=== PATIENT | female | born 1940 | race Caucasian/White ===

== ENCOUNTER 2018-06-19 16:11 | Inpatient (IN) ==
--- NOTE | 2018-06-19 16:53 | Diag Imaging Result Doc PS360 ---
EXAM: CT HEAD W/O CONTRAST INDICATION: STROKE LIKE SYMPTOMS TECHNIQUE: This exam was performed using automated exposure control, adjustment of mA or kV according to patient size, and/or use of iterative reconstruction technique. COMPARISON: None. FINDINGS: There is focal low attenuation involving the left temporoparietal region with loss of the slater-white interface indicating an acute infarct. It is in the left MCA distribution. There is mild sulcal effacement related to the associated edema. Otherwise, there is no discrete intracranial mass, mass effect, or intracranial hemorrhage. The surrounding soft tissues and bony structures are essentially unremarkable. IMPRESSION: Acute infarct involving the left temporoparietal region as described. The findings were discussed with Billy Leon MD at 06/19/2018 4:51 PM and was acknowledged. Electronically signed by Chauncey Boyer 06/19/2018 4:51 PM
--- NOTE | 2018-06-19 17:31 | PROVIDER DOCUMENTATION ---
HPI-General Adult - General Chief Complaint: Stroke-Like Symptoms Stated Complaint: STROKE LIKE SYMPTOMS Time Seen by Provider: 06/19/18 17:35 Source: patient - History of Present Illness -Gen Adult Nature of Presenting Problems: THIS IS A 78 YEAR OLD FEMALE WITH ONLY MEDICAL HISTORY OF GERD PER PATIENT AND WAS INSTRUCTED BY THEIR PRIMARY CARE PROVIDER TO COME IN TODAY WITH CONCERN OF EXPRESSIVE APHAGIA. PER , HE NOTICED WAS NOT MAKING ANY SENSE WHEN SHE TALKS AROUND 0700 THIS MORNING WHEN SHE WORK UP. DENIES ANY OTHER NEUROLOGICAL DEFICIT. CURRENTLY, PATIENT DENIES ANY FEVER, CHILL, NIGHT SWEATS, DIZZINESS, LIGHTHEADEDNESS, BLURRY VISION, SORE THROAT, CHEST PAIN, PALPITATION, DYSPNEA, ABDOMINAL DISCOMFORT, NAUSEA, VOMITING, DIARRHEA, CONSTIPATION, MYALGIA, ARTHRALGIA, NEW RASH/LESION, AND HEAT OR COLD INTOLERANCE. Review of Systems - Adult - REVIEW OF SYSTEMS - ADULT ROS:: unobtainable per condition Constitutional: reports: no symptoms reported Eyes: reports: no symptoms reported Ears, Nose, Mouth & Throat: reports: no symptoms reported Cardiovascular: reports: no symptoms reported Respiratory: reports: no symptoms reported Gastrointestinal: reports: no symptoms reported Genitourinary: reports: no symptoms reported Musculoskeletal: reports: no symptoms reported Integumentary: reports: no symptoms reported Neurological: reports: slurred speech Psychiatric: reports: no symptoms reported Endocrine: reports: no symptoms reported Hematologic/Lymphatic: reports: no symptoms reported Past History - Adult - PAST MEDICAL HISTORY-ADULT Review of Records: reports: Old Records Reviewed Physical Exam-General - PHYSICAL EXAM-ADULT Initial Vital Signs Reviewed: Yes - CONSTITUTIONAL General Appearance: appears well, alert, no apparent distress - EYES Eyes: PERRL/EOMI - HEAD, EARS, NOSE, MOUTH & THROAT HENMT: normocephalic/atraumatic, moist mucous membranes, normal ENT inspection - NECK Neck: non-tender, full range of motion, supple - RESPIRATORY Respiratory: chest non-tender, lungs clear, normal breath sounds, no pleuratic chest pain, no respiratory distress, no accessory muscle use - CARDIOVASCULAR Cardiovascular: normal peripheral pulses, regular rate, rhythm, no edema, no gallop, no JVD, no murmur - GASTROINTESTINAL (ABDOMEN) Abdominal Exam: normal bowel sounds, non tender, soft - MUSCULOSKELETAL Back Exam: normal inspection, no CVA tenderness, no vertebral tenderness Extremity: normal range of motion, non-tender, normal gait, normal inspection - SKIN Integumentary: normal color, normal turgor, warm/dry - NEUROLOGIC Neurologic: grossly normal, aphasia (EXPRESSIVE APHAGIA). negative: facial droop, focal weakness, motor weakness, sensory deficit - PSYCHIATRIC Psych/Mental Status: normal mood/affect, normal thought content. negative: normal thought process (THOUGHT PROCESS IS SLOW.) Progress - PLAN OF CARE/RESULTS Progress/Plan/Lab Results: Vital Signs - 8 hr 06/19/18 16:20 Temperature 98.3 F Pulse Rate 91 H Respiratory Rate 17 Blood Pressure 179/83 O2 Sat by Pulse Oximetry 100 Orders Category Date Time Status NPO Diet 06/19/18 17:[address] HEAD W/O CONTRAST [CT] Stat Exams 06/19/18 16:27 Completed cxr [CHEST-PORTABLE] [RAD] Stat Exams 06/19/18 17:28 Ordered CBC WITH ELECTRONIC DIFF [HEME] Stat Lab 06/19/18 17:27 Uncollected COMPREHENSIVE METABOLIC PANEL [CHEM] Stat Lab 06/19/18 17:27 Uncollected LIPID PROFILE W/DIR LDL [LIPIDS] Stat Lab 06/19/18 17:27 Ordered MAGNESIUM [CHEM] Stat Lab 06/19/18 17:27 Uncollected URINALYSIS W/POSS RFLX CULT [URINALYSIS] Stat Lab 06/19/18 17:28 Uncollected EKG [EKG] Stat Ther 06/19/18 17:28 Ordered - REASSESSMENT Reassessment #1 Time Reassessed: 17:31 Status: other (CT REPORT WAS GIVEN TO ME OVER THE PHONE WHICH I IMMEDIATELY WENT TO WAITING AREA TO TALK TO THE PATIENT. PER PATIENT AND FAMILY, HER SYMPTOMS OF EXPRESSIVE APHAGIA STARTED AROUND 7AM IN THE [facility] AND WENT TO HER PCP FIRST WHICH THEY INSTRUCTED HER TO COME HERE. GIVEN THAT HER SYMPTOMS STARTED 7AM, SHE IS NOT A CANDIDATE FOR TPA. 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, WE CURRENTLY DONT' HAVE ANY BED OR ADDITTIONAL NURSE STAFF BUT I HAVE INFORMED PATIENT AND SHE WILL BE BROUGHT IN RAY WHEN A BED OPENS UP.) Reassessment #2 Time Reassessed: 18:44 Status: other (SPOKE TO TRIAGE NURSE TO GIVE ASPIRIN 325MG.) Reassessment #3 Time Reassessed: 19:43 Status: other (PATIENT WILL BE ADMITTED; I AM JUST WAITING FOR LABS TO COME BACK TO CALL THE HOSPITALIST) Reassessment #4 Time Reassessed: 20:01 Status: other (SPOKE TO THE HOSPITALIST, APPRECIATE THEIR ASSISTANCE.) - XRAY 1 XRAY Study: Chest ([facility] [address] , [address], [place] [address] Department of Imaging Patient: HERMINIA GUEVARA FAYEADM Date: MR#: [id number] : 1940DM Status: REG ERAcct#: [id number] Age/ Sex: 78/FRoom/Bed: Loc: ED Ordering Physician: Billy Leon MD Family Physician: Garima Burleson MD Reason for Procedure: STROKE Signed * 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 There are several scattered calcified granulomata. The lungs appear grossly clear, otherwise. There is no discrete pleural fluid collection or pneumothorax. The cardiomediastinal silhouette and central vasculature are grossly unremarkable. IMPRESSION: No evidence of acute pathology by plain radiograph. Electronically signed by Chauncey Boyer 06/19/2018 7:32 PM 06/19/181931 Interpreting Physician: Chauncey Boyer MD Dictated Date/Time: 06/19/181929 cc: Billy Leon MD; Garima Burleson MD) - CT/MRI 1 CT Study: Head ([facility] [address] [facility], [address], [place] [address] Department of Imaging Patient: HERMINIA GUEVARA FAYEADM Date: 03/[birth year]MR#: [id number] : 1940DM Status: PRE ERAcct#: [id number] Age/ Sex: 78/FRoom/Bed: Loc: ED Ordering Physician: Billy Leon MD Family Physician: Garima Burleson MD Reason for Procedure: STROKE LIKE SYMPTOMS ___ _ Signed EXAM: CT HEAD W/O CONTRAST INDICATION: STROKE LIKE SYMPTOMS TECHNIQUE: This exam was performed using automated exposure control, adjustment of mA or kV according to patient size, and/or use of iterative reconstruction technique. COMPARISON: None. FINDINGS: There is focal low attenuation involving the left temporoparietal region with loss of the slater- white interface indicating an acute infarct. It is in the left MCA distribution. There is mild sulcal effacement related to the associated edema. Otherwise, there is no discrete intracranial mass, mass effect, or intracranial hemorrhage. The surrounding soft tissues and bony structures are essentially unremarkable. IMPRESSION: Acute infarct involving the left temporoparietal region as described. The findings were discussed with Billy Leon MD at 03/2019 4:51 PM and was acknowledged. Electronically signed by Chauncey Boyer 03/2019 4:51 PM 06/19/18 1651 Interpreting Physician: Chauncey Boyer MD Dictated Date/Time: 06/19/18 1645 cc: Billy Leon MD; Garima Burleson MD) Departure - Departure Date of Disposition Decision: 06/19/18 Time of Disposition Decision: 20:01 DIAGNOSIS: Stroke Disposition: ADMITTED INPATIENT 09 Certified Medical Emergency: Emergent Condition: Fair Referrals and Follow-Ups: Garima Burleson MD [Primary Care Provider] - - Critical Care Note This patient required my direct & personal management of CC.: No Attestation - Physician/ ALLISON Attestation Patient care was provided by Advanced Practice Provider:: No The physician spent face to face time with patient:: Yes Advanced Practice Provider documentation review:: Supervising physician onsite and consulted in the evaluation and care of this patient. The physician did have a face to face encounter with the patient.
[2018-06-19] MEDS ORDERED: ASPIRIN PO ONE (18:40)
--- NOTE | 2018-06-19 19:33 | Diag Imaging Result Doc PS360 ---
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 There are several scattered calcified granulomata. The lungs appear grossly clear, otherwise. There is no discrete pleural fluid collection or pneumothorax. The cardiomediastinal silhouette and central vasculature are grossly unremarkable. IMPRESSION: No evidence of acute pathology by plain radiograph. Electronically signed by Chauncey Boyer 06/19/2018 7:32 PM
[2018-06-19 20:34] LABS: URINE SOURCE CLEAN CATCH
[2018-06-19 20:36] LABS: BASO# 0.04 X1000 (0.0-0.2); BASO% 0.7 % (0.0-0.8); EOS# 0.15 X1000 (0.0-0.7); EOS% 2.5 % (0.0-10.0); HEMATOCRIT 37.9 % (37.0-47.0); HEMOGLOBIN 12.4 g/dL (12.0-16.0); LYMPH# 2.14 X1000 (1.2-3.4); LYMPH% 35.9 % (20.5-51.1); MCH 28.4 PG (27-31); MCHC 32.7 g/dL (33-37); MCV 86.7 FL (81-99); MONO# 0.52 X1000 (0.11-0.59); MONO% 8.7 % (1.7-9.3); MPV 10.6 FL (7.4-10.4); NEUT# 3.11 X1000 (1.4-6.5); NEUT% 52.2 % (42.2-75.2); PLT 270 X1000 (130-400); RBC 4.37 XMIL (4.2-5.4); RDW 13.4 % (11.5-14.5); WBC 5.96 X1000 (4.8-10.8)
[2018-06-19 20:38] LABS: BILIRUBIN URINE NEGATIVE (NEGATIVE); BLOOD URINE NEGATIVE (NEGATIVE); COLOR STRAW; GLUCOSE URINE NEGATIVE (NEGATIVE); KETONE URINE 10 mg/dL (NEGATIVE); LEUKOCYTES URINE NEGATIVE (NEGATIVE); NITRITE URINE NEGATIVE (NEGATIVE); PROTEIN URINE NEGATIVE (NEGATIVE); TURBIDITY URINE CLEAR (CLEAR); UROBILINOGEN URINE NORMAL (NORMAL)
[2018-06-19 20:40] LABS: UR EPITHELIAL CELLS <10 /HPF (<10); URINE BACTERIA NEGATIVE /HPF; URINE RBC <10 /HPF (<10); URINE WBC <10 /HPF (<10)
[2018-06-19 20:41] LABS: INR 0.86; PROTIME 12.4 Seconds (11.0-16.0)
[2018-06-19 20:42] LABS: PTT 28.9 Seconds (22.3-41.8)
[2018-06-19 21:01] LABS: AGAP 12; ALB/GLOB RATIO 1.7; ALBUMIN 4.6 g/dL (3.5-5.0); ALKALINE PHOSPHATASE 50 U/L (32-104); BUN 14 mg/dL (8-22); CALCIUM 9.6 mg/dL (8.8-10.2); CHLORIDE 99 mmol/L (98-107); COSMO 270; CREATININE 0.8 mg/dL (0.5-0.9); ESTIMATED GFR > 60; GLUCOSE 95 mg/dL (70-104); GOT 24 U/L (10-30); GPT 17 U/L (10-36); MAGNESIUM 2.2 mg/dL (1.5-2.7); SODIUM 135 mmol/L (136-145); TCO2 24 mmol/L (25-35); TOTAL BILIRUBIN 0.31 mg/dL (0.20-1.00); TOTAL PROTEIN 7.3 g/dL (6.3-8.3)
[2018-06-19] MEDS ORDERED: NS 1,000 ML IV SCH (22:16)
[2018-06-19] MEDS ORDERED: CATAPRES PO PRN (22:16)
[2018-06-19] MEDS: LIPITOR PO SCH (23:05)
[2018-06-19] MEDS: LOVENOX SUBQ SCH (23:05)
--- NOTE | 2018-06-20 05:49 | HISTORY AND PHYSICAL ---
PRIMARY CARE PHYSICIAN: Dr. Burleson. REASON FOR ADMISSION: One-day history of expressive aphasia. HISTORY OF PRESENT ILLNESS: Ms. Natividad Storey is a 78-year-old lady with no past medical history other than seasonal allergic rhinitis and reflux disease. She was brought in today eight hours after she awakened to have difficulty expressing herself and with slurred speech. The and patient concur with these events and they both report that her speech as of five hours later had significantly improved although she was still having difficulty, specifically expressing and enunciating some of her words. When this occurred, the spouse and nephew who came around later in the day, denied any facial drooping or extremity weakness. The patient denied any antecedent headache, visual problems, difficulty swallowing. She said she knew what she wanted to say but the words never quite came out the way she wanted. She then went to see her family physician eight hours later who referred her immediately to the ER. Since she has been in the ER over the last five hours her dysarthria and expressive aphasia has significantly improved. Every now and again she may trip up on an occasional word. Still she has not developed any other symptoms, i.e. weakness, numbness, tingling, neck stiffness. No antecedent history of palpitations or cardiorespiratory complaints. No GI or complaints other than heartburn which is chronic and very intermittent. REVIEW OF SYSTEMS: Twelve system review was done. Positive findings per HPI. No use of new over- the-counter medications, i.e. herbal remedies. ALLERGIES: Patient reports none. MEDICATIONS: None. SURGICAL HISTORY: Right shoulder and right heel surgery. SOCIAL HISTORY: She does not smoke, use illicit drugs. . Lives with her . FAMILY HISTORY: Notable for heart disease. No diabetes or cancer in first-degree relatives. LAB WORK: EKG was ordered but has not been done. Chest film was negative for any acute cardiorespiratory findings. CT of the head, however, did show an acute focal area of low attenuation in the left temporoparietal region suggestive of an acute stroke in the left MCA territory. The rest of her lab work is still pending but so far her PT [*]is normal. CBC: White count 6000. Hemoglobin and hematocrit 12 and 37. Platelets 270 with normal differential. Urinalysis is clean. Chemistry is still pending as is EKG. PHYSICAL EXAMINATION: VITAL SIGNS: Blood pressure 156/65, heart rate 65, respirations 18, temperature is 97.9, 100% on room air. GENERAL: She is a pleasant thin elderly woman who is not in acute distress. She is alert and oriented to person, place and time. Cranial nerves II-XII are grossly intact. The only thing of note is that very occasionally she might have a hard time enunciating certain words, exhibiting a mild Broca's type aphasia. Neurological exam, very mild left upper extremity weakness. Otherwise, no other sensory motor deficits noted. HEENT: Eyes: Anicteric. Not pale. ENT: Oropharynx exam is grossly normal. No sign of cyanosis. NECK: Supple. No JVD. No carotid bruit. No thyromegaly. CHEST: Clear when auscultated with good air entry in both lung robison. CARDIOVASCULAR: First and second heart sounds are heard. No gallops, murmurs or rubs. Rhythm is regular. ABDOMEN: Full. No tenderness or megaly. Bowel sounds are hypoactive. No bruit heard. RECTAL: Exam deferred at this time. EXTREMITIES: No edema, clubbing or peripheral cyanosis. The patient has good distal pulse extremity pulse volumes, regular, symmetrical. NEUROLOGICAL: See above. SKIN: Intact with no breakdown, lesion or erythema. MUSCULOSKELETAL: Exam is grossly normal. 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 PLAN: Patient will be started on aspirin fir secondary prophylaxis, statin for the same reason. Blood pressure medications will be withheld for now, systolic blood pressure greater than 180. This may eventually be started if systolic blood pressure remains greater than 140s, 150s after about two days. Stroke workup involving echocardiogram, carotid Doppler study and an intracranial MRI have been ordered. Neurology has been consulted. Other potential risk factors will be investigated. Will check an A1c. Continue telemetry to ensure patient does have not paroxysmal atrial fibrillation. Thrombophilia workup not cost effective in this patient with no family history or prior history of clotting disease, however, DVT prophylaxis will be instituted. cc: MD Garima Walker MD
[2018-06-20 07:35] LABS: BASO# 0.03 X1000 (0.0-0.2); BASO% 0.9 % (0.0-0.8); EOS# 0.09 X1000 (0.0-0.7); EOS% 2.8 % (0.0-10.0); HEMATOCRIT 33.7 % (37.0-47.0); HEMOGLOBIN 10.9 g/dL (12.0-16.0); LYMPH# 1.41 X1000 (1.2-3.4); LYMPH% 43.7 % (20.5-51.1); MCH 28.3 PG (27-31); MCHC 32.3 g/dL (33-37); MCV 87.5 FL (81-99); MONO# 0.33 X1000 (0.11-0.59); MONO% 10.2 % (1.7-9.3); MPV 10.6 FL (7.4-10.4); NEUT# 1.37 X1000 (1.4-6.5); NEUT% 42.4 % (42.2-75.2); PLT 226 X1000 (130-400); RBC 3.85 XMIL (4.2-5.4); RDW 13.4 % (11.5-14.5); WBC 3.23 X1000 (4.8-10.8)
--- NOTE | 2018-06-20 07:35 | EKG Report ---
Test Performed on : 06/19/2018 9:06:44 PM Test Reason : CP Blood Pressure : / mmHG Vent. Rate : 063 BPM Atrial Rate : 063 BPM P-R Int : 162 ms QRS Dur : 084 ms QT Int : 410 ms P-R-T Axes : 033 -13 020 degrees QTc Int : 419 ms Normal sinus rhythm. Normal ECG No previous ECGs available Unconfirmed Result
[2018-06-20 08:17] LABS: AGAP 10; BUN 11 mg/dL (8-22); CALCIUM 8.2 mg/dL (8.8-10.2); CHLORIDE 104 mmol/L (98-107); COSMO 275; CREATININE 0.7 mg/dL (0.5-0.9); ESTIMATED GFR > 60; GLUCOSE 89 mg/dL (70-104); SODIUM 138 mmol/L (136-145); TCO2 24 mmol/L (25-35)
[2018-06-20] MEDS: ASPIRIN PO SCH (11:36)
--- NOTE | 2018-06-20 16:44 | CONSULTATION ---
DATE OF CONSULTATION: 06/20/2018 REASON FOR CONSULTATION: Stroke. HISTORY OF PRESENT ILLNESS: This is a very pleasant 78-year-old right-handed female with no significant medical history, who was admitted with stroke. History is from the patient. She reports yesterday morning around 8:00 a.m., she and her woke up, she sat on the side of the bed, and her very quickly noticed that she was having difficulty with speech output. Her speech may have also been slurred. She called to make an appointment with her primary care physician and was able to see that person in the afternoon yesterday. She was immediately referred to [facility] for concern of stroke. The patient denied focal weakness or sensory loss. No headache or visual changes. No loss of consciousness. No other symptoms. She could walk without difficulty. Head CT showed acute infarct within the left MCA distribution involving the temporoparietal region. She was admitted for stroke workup. She denies personal history of stroke. No major neurologic event history. PAST MEDICAL HISTORY: Osteoporosis, seasonal allergies, reflux, hyperlipidemia. Denies known heart disease. FAMILY HISTORY: She denies strokes. Positive for heart disease. SOCIAL HISTORY: Lifelong nonsmoker. No alcohol. No illicits. She is , lives with her and drives. She previously worked in a factory making clothing. ALLERGIES: No known drug allergies listed. HOME MEDICATIONS: She reports taking low dose aspirin daily, longstanding as primary prevention. She takes some medication for cholesterol but does not recall the name. She also takes a medication for osteoporosis once monthly. REVIEW OF SYSTEMS: A balance of 12 was conducted and is otherwise negative except for that detailed in the HPI. She did report a mild frontal forehead headache this morning that was resolved at the time of my encounter. PHYSICAL EXAMINATION: Vital signs: Afebrile. Her blood pressure was 179/83 on admission, currently 140/64. Pulse 60s to 80s. Respirations 20. Saturation 100% on room air. Ms. Storey is supine in bed, awake, alert and oriented. She follows simple commands. She is able to provide history and discusses remote events as well. She has evidence of moderate expressive aphasia with frequent word substitutions. Pupils are equal, round and reactive to light. Gaze conjugate. Extraocular movements are full. Visual robison appear to be full to direct confrontational testing. Face symmetric with equal activation. Facial sensation intact. Tongue is midline. She can hear. Palpate elevates symmetrically. Shoulder shrug is full. No drift. Strength is preserved in the arms and legs and symmetric. She reports symmetric sensation to light touch and pinprick in the extremities and on the face. Finger to nose and rapid alternating movements are symmetric and intact. Reflexes are 2+ at the biceps. Absent ankle jerks. No clonus. Plantar response is mute bilaterally. Head CT noncontrast was personally reviewed showing a hypodensity within the left temporoparietal region consistent with acute ischemic stroke. DIAGNOSTIC DATA: Labs reviewed. Normal BUN, creatinine. A1c is 5.0. Triglycerides 65, cholesterol 225, LDL is 127, HDL is 98. ASSESSMENT AND PLAN: 1. Acute LMCA distribution ischemic stroke. 2. Moderate expressive aphasia. 3. Hyperlipidemia. Agree with typical stoke workup including carotid dopplers and TTE. I would recommend full dose aspirin daily with food. Agree with high potency statin therapy. Would allow for some permissive hypertension over the next day or two and avoiding hypotension. Tele monitoring to eval for afib. PT, OT. She would definitely benefit from speech therapy, and they should also clear her for a diet. Continue neuro checks. Thank you for the consultation. cc: Charley Layton MD [facility]
--- NOTE | 2018-06-20 17:06 | ECHO REPORT ---
ORDER DATE: 06/20/2018 INTERPRETING PHYSICIAN: Dr. Dumont REQUESTING PHYSICIAN: CLINICAL INDICATIONS: This is a 78-year-old female with stroke, acid reflux, numbness, weakness. M-MODE MEASUREMENTS: Right ventricle: cm. Left ventricle end diastole: 4.3 cm. Left ventricle end systole: 2.6 cm. Posterior wall: 0.8 cm. Interventricular septum: 0.6 cm. Left atrium: 3.2 cm. Aortic root: 3.2 cm. SUMMARY OF 2-DIMENSIONAL IMAGIN. Left ventricular function is normal. Ejection fraction is 68%. No wall motion abnormality noted. 2. Aortic valve looks normal. Color flow mapping is unremarkable. 3. Mitral valve shows mild degree of regurgitation. 4. Pulse wave Doppler of mitral inflow is normal. 5. Tissue Doppler of septal and lateral mitral annulus averages 8 cm. 6. There is no diastolic dysfunction. 7. Tricuspid valve showed mild degree of regurgitation. 8. Pulmonary pressure is estimated at 28 mmHg. 9. Pulmonic valve looks normal. Color flow mapping is unremarkable. 10.There is no pericardial effusion, mass or thrombus. CONCLUSIONS: In summary, this study showed: 1. Normal left ventricular systolic function. 2. No diastolic dysfunction. 3. Mild degree of mitral and tricuspid regurgitation. 4. Pulmonary pressure was normal. Clinical correlation is recommended. cc: MD Reed Holden MD
--- NOTE | 2018-06-20 17:13 | PROGRESS NOTE ---
DATE: 06/20/2018 SUBJECTIVE: Ms. Storey had a one-day history of expressive aphasia. She is followed by Dr. Burleson. A 78-year-old male with no past medical history other than seasonal allergies, allergic rhinitis, and reflux disease, brought in. About 8 hours after she awoke, she had difficulty expressing herself and slurred speech. The and the patient concerned with these events and report that the speech as of 5 hours later had significantly improved, although she was still having difficulty specifically expressed and enunciating some words. When this occurred, the spouse and nephew come around later in the day. He denied any facial drooping or extremity weakness. The patient denied any antecedent headache, visual problems, difficulty swallowing. She knew the words that she wanted to say, but she just could not seem to say them so admitted to the hospital. Left MCA CVA evolving in the Broca's region. She is doing better. Speech is much better. OBJECTIVE: Vital signs: Temperature 98.1 degrees, pulse 63, respirations 20, blood pressure 127/64. HEENT: Pupils are equal and round. Lungs: Clear in all lung robison. Cardiovascular: Regular rhythm and rate without murmur or S3. Abdomen: Soft. DIAGNOSTIC STUDIES: Reviewed the lab from yesterday. White count 3230, hematocrit 33, platelet count 226,000. Sodium 138, potassium 4.0, chloride 104, BUN 11, creatinine 0.7. Urinalysis unremarkable. CT of the head without contrast: Acute infarct involving the left temporoparietal region. Chest x-ray: No evidence of acute pathology on plain radiograph. ASSESSMENT AND PLAN: Left middle cerebral artery (MCA) cerebrovascular accident (CVA) involving the Broca's region. No motor deficits. Patient was started on aspirin and statin for the same reason. Blood pressures seem to be well controlled. Would like to continue to allow blood pressures to run if they need to 140-150, which they are. She seems to have shown good improvement, still trouble with her speech but would like to go home so I think she can go home in the morning. We will set up physical therapy and home health for physical therapy and speech therapy. She is on aspirin 325 mg initially and now it is 81 mg a day. She is taking Lipitor 40 mg at bedtime. Her EKG showed a normal sinus rhythm, normal EKG. No sign of arrhythmia. cc: Jan Shi MD MTDD
--- NOTE | 2018-06-20 17:19 | Carotid Study ---
DATE: 06/20/2018 PROCEDURE: Carotid duplex imaging. REFERRING PHYSICIAN: Dr. Reed Mendenhall. INTERPRETING PHYSICIAN: Corwin Colin MD. TECH: [place]. INDICATIONS: Stroke. OBSERVED DATA RIGHT LEFT Brachial Blood Pressure Carotid Pulse Bruits: Carotid/Sub DIAGRAM OF ULTRASOUND IMAGING R L RIGHT INT EXT INT EXT LEFT Tapan (cm/s) Tapan (cm/s) Subclavian 123/0 Subclavian 96/0 CCA Proximal 119/3 CCA Proximal 78/5 CCA Distal 75/11 CCA Distal 60/10 Bulb 53/9 Bulb 52/11 ICA Proximal 51/11 ICA Proximal 82/18 ICA Mid 105/23 ICA Mid 79/20 ICA Distal 65/13 ICA Distal 75/18 ECA 60/0 ECA 55/0 Vertebral 37/6 A Vertebral 64/13 A ICA/CCA Ratio 0.9 ICA/CCA Ratio 1.0 % Stenosis 0-39 % Stenosis 0-39 FINDINGS: There is no significant plaque in either carotid system. There is antegrade vertebral flow bilaterally. INTERPRETATION: Unremarkable carotid imaging study. cc: MD Reed Romo MD
[2018-06-20] MEDS: LIPITOR PO SCH (22:41)
[2018-06-20] MEDS: LOVENOX SUBQ SCH (22:41)
[2018-06-21] MEDS: ASPIRIN PO SCH (09:59)
--- NOTE | 2018-06-21 11:39 | PROGRESS NOTE ---
DATE: 06/21/2018 SUBJECTIVE: Dr. Layton saw Ms. Storey for initial neurology evaluation. 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 Carotid ultrasound is unremarkable. Echocardiogram showed no source of embolus. Systolic blood pressures have ranged 120s to 150s and she has tolerated that. She reports no headache. PHYSICAL EXAMINATION: On exam now, she is awake, alert, attentive, appropriate , cheerful. Speech is not significantly dysarthric. She made some errors with bedside language testing on repeating words, repeating pronouns, naming parts of objects, proper nouns. She had significant difficulty following commands requiring right/left distinction and digit distinction. I can overcome the right arm at the deltoid, but I believe this may be a mechanical problem related to old shoulder joint trouble. Otherwise, I do not find a definite motor deficit. She did well on [id number] testing bilaterally. She reports equal pinprick and light touch appreciation over the hands. Visual robison are full on gross testing. Facial motility is symmetric. Head is unremarkable. Neck is supple. IMPRESSION: Isolated, expressive more than receptive dysphasia with minimal or no motor, sensory and visual deficit. PLAN: I would continue aspirin, continue statin, continue to permit moderate systolic blood pressure elevation, continue speech therapy and physical therapy. Okay from Neurology standpoint for discharge home with follow-up in primary clinic and attention to blood pressure as needed as outpatient. We will also be glad to see her in Neurology clinic as outpatient, if needed. Thanks for asking Neurology to see Ms. Storey. cc: MD GADIEL Johnson III
[2018-06-21 11:52] VITALS: BP 129/64
--- NOTE | 2018-06-21 14:26 | DISCHARGE SUMMARY ---
ADMISSION DATE: 06/19/2018 DISCHARGE DATE: 06/21/2018 PHYSICIAN: Dr. Burleson. HISTORY: This is a 78-year-old with no Past Medical History other than seasonal allergic rhinitis and gastroesophageal reflux, who was brought in on 06/19/2018. About 8 hours after she woke up, she noticed difficulty with expressing words and slurred speech. and patient concurred that these events were both consistent and seemed to get better about 5 hours after that. Specifically, she had trouble expressing and annunciating some of her words. She knew what she wanted to say, so she presented to the hospital concerned that she had a CVA involving the Broca region motor deficit. She underwent a CT of the head without contrast, and acute infarct involving the left temporal parietal region which was consistent with her speech deficit. She underwent carotid Doppler's, and there were no significant lesions on the right or left carotid system. Echocardiogram showed no mural thrombus. She had a normal left ventricle and good left ventricular function. She showed some steady improvement. Dr. 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 She remained hemodynamically stable. She remained in sinus rhythm, and was evaluated by Physical Therapy and Speech Therapy. It was felt she could go home, and would like to. We will continue her on her medicines that she is here in the hospital. She is on aspirin 81 mg a day. We started Lipitor 40 mg a day, and that is really it. We will get home health involved. For now, we will hold her Fosamax. We will see if we can get speech and physical therapy at home. She is to follow up with her primary care physician. cc: Jan Shi MD
== END 2018-06-21 15:58 | disposition home health service (06) | DRG 66 ==
LOC: ED 16:11 → SUATTDRO 21:57 → 3N 21:57
PROVIDERS: ATTEND Emergency Medicine
CPT/HCPCS: 70450; 71010; 71045; 80048; 80053; 80061; 81001; 83036; 83721; 83735; 85025; 85610; 85730; 92523; 93005; 93306; 93880; 99285; A9270; J1650; J7030